=== PATIENT | female | born 1955 | race African-American/Black ===

== ENCOUNTER 2018-05-21 02:23 | Inpatient (IN) | payer OTHER ==
[~2018-05-21] VITALS: Ht 157.5 cm; Wt 106.8 kg
[~2018-05-21 02:23] MED LIST: AMLODIPINE10 MG PO; ASPIRIN81 M1 PO; ASPIRIN81 M4 PO; BISAC-EVAC10 M1 PR; CALCIUM CARBON500 M2 PO; DOCUSATE SODIU100 M3 PO; HYDRODIURIL 2525 MG PO; HYDROMORPHONE HC2 M1 PO; MILK OF MA400 MG/52 PO; ONE DAILY MULT1 EAC2 PO; PERCOCET 325 MG1 TA2 PO; TYLENOL325 M1 PO; VITAMIN D31000 UNI2 PO; [UNRECOGNIZED DRUG - SUPPLY]
--- NOTE | 2018-05-21 13:07 | Operative Report ---
Operative/Inv Procedure Report Surgery Date: 05/21/18 Name of Procedure: Lumbosacral inspection of fusion mass. Removal of segmental hardware L3-4 laminectomies L3 36967. Instrumented fusion L3 through S1. Lateral fusion L3 S1 with local bone. Using fluoroscopy. Pre-Operative Diagnosis: Severe degenerative facet arthropathy and spinal stenosis status post lumbar fusion L3 through S1. Post-Operative Diagnosis: Same Estimated Blood Loss: 150cc Surgeon/Meat Cutter: Fredrick MENA,German VARELA Anesthesia: general endotracheal tube Operative/Procedure Note Note: After adequate general anesthesia was achieved the patient was placed in the prone position. The back was sterilely prepped and draped the previous incision was extended distally. The dissection was carried over the dorsal elements and the deep retractors were placed. The area of previous fusion was easily identified the fusion was inspected the hardware was intact and there is no evidence of motion at 3 4. The hardware was easily removed. Laminectomies were created at 3445 and 5 1. There was significant instability below the fusion at L4-5. There is severe facet arthropathy at L4-5 and L5-S1. Laminectomies were performed at L3 445 and 5 1 with debridement of foramen at all 3 levels and removal of severely thickened ligamentum flavum and bony osteophytes at L4-5. Brachial arteries were created in L5 and S1 the pedicles were tapped checked with a ball-tipped probe and screws were placed 2 screws were placed in L3 one screw was placed in L4 on the right side 2 screws in L5 and 2 screws in S1. There is excellent purchase of all 7 screws. Due to the decompression there was loss of optimal bone purchase in the left L4 and the screw was not used since the 3 4 fusion was solid. Rods were contoured facets were decorticated with a pencil point yousuf compression was applied and the screws were locked. The construct was evaluated in AP and lateral plane and found to be appropriately positioned. Spinous processes were harvested lateral intertransverse process region was decorticated with a high-speed bur from L3 through S1 and bone graft was packed laterally as well as underneath the rods over the decorticated facet joints at L4-5 and L5-S1. Wound is copiously irrigated Gelfoam was laid over the laminotomy sites and a closure of the lumbodorsal fascia and subcutaneous tissue was performed with a double suture. The skin was closed with jade. After placement of sterile dressings the patient was logrolled onto the stretcher.
--- NOTE | 2018-05-21 13:14 | Patient Discharge Instructions ---
Acute Coronary Syndrome Inclusion Criteria At DC or during hospital stay patient has or had the following: ACS DIAGNOSIS No Discharge Core Measures Meds if any: Prescribed or Continued at Discharge Meds if any: NOT Prescribed or Continued at Discharge Congestive Heart Failure Inclusion Criteria At DC or during hospital stay patient has or had the following: CHF DIAGNOSIS No Discharge Core Measures Meds if any: Prescribed or Continued at Discharge Meds if any: NOT Prescribed or Continued at Discharge Cerebrovascular accident Inclusion Criteria At DC or during hospital stay patient has or had the following: CVA/TIA Diagnosis No Discharge Core Measures Meds if any: Prescribed or Continued at Discharge Meds if any: NOT Prescribed or Continued at Discharge Venous thromboembolism Inclusion Criteria VTE Diagnosis No VTE Type NONE VTE Confirmed by (Test) NONE Discharge Core Measures - Per Current guidelines, there needs to be overlap - treatment for the first 5 days of Warfarin therapy. - If discharged on Warfarin prior to 5 days of - overlap therapy, the patient will need to be - assessed for post discharge needs including - *Post discharge parental anticoagulation - *Warfarin and/or parental anticoagulation education - *Follow up date to check INR post discharge At least 5 days overlap therapy as Inpatient No Meds if any: Prescribed or Continued at Discharge Note: Overlap Therapy is Warfarin and Anticoagulant Meds if any: NOT Prescribed or Continued at Discharge
[2018-05-21] MEDS ORDERED: MILK OF MA400 MG/52 PO (13:18)
[2018-05-21] MEDS ORDERED: MULTIVITAMINS1 EAC9 PO (13:18)
[2018-05-21] MEDS ORDERED: OS-CAL 500+D31 EAC1 PO (13:18)
[2018-05-21] MEDS ORDERED: VITAMIN D31000 UNI2 PO (13:18)
[2018-05-21] MEDS ORDERED: COLACE100 M1 PO (13:18)
[2018-05-21] MEDS ORDERED: TYLENOL EXTRA500 M2 PO (13:18)
[2018-05-21] MEDS ORDERED: DULCOLAX10 M1 RC (13:18)
[2018-05-21] MEDS ORDERED: PERCOCET 5-3251 EACH PO (13:18)
[2018-05-21 13:26] LABS: ABSOLUTE BASOPHIL COUNT 0 /CUMM (0.0-0.2); ABSOLUTE EOSINOPHIL COUNT 0 /CUMM (0.0-0.7); ABSOLUTE GRANULOCYTE CT 8.5 /CUMM (1.4-6.5); ABSOLUTE LYMPH COUNT 1.9 /CUMM (1.2-3.4); ABSOLUTE MONOCYTE COUNT 0.2 /CUMM (0.10-0.60); BASOPHIL % 0 % (0.0-2.0); EOSINOPHIL % 0.1 % (0-5); GRANULOCYTE % 80.6 % (42.2-75.2); HEMATOCRIT 39.2 % (37-47); MEAN CORPUSCULAR HGB 29.8 PG (27.0-31.0); MEAN CORPUSCULAR HGB CONC 34.1 G/DL (33.0-37.0); MEAN CORPUSCULAR VOLUME 87.3 FL (81.0-99.0); MEAN PLATELET VOLUME 8.9 FL (7.4-10.4); RBC DISTRIBUTION WIDTH 14.3 % (11.5-14.5); RED BLOOD CELL CT 4.49 /CUMM (4.20-5.40); WHITE BLOOD CELL COUNT 10.6 /CUMM (4.8-10.8)
--- NOTE | 2018-05-21 13:29 | RADIOLOGY REPORT ---
EXAMINATION: FL LUMBAR SPINE IN OPERATING ROOM CLINICAL INFORMATION: L2 through L5 fusion in OR. COMPARISON: Lumbosacral spine 06/20/2016. TECHNIQUE: Fluoroscopy was provided in the operating room. Intraoperative spot views were obtained of the lumbar spine in AP and lateral projections. NUMBER OF FLUOROSCOPIC IMAGES: 2 images. FLUOROSCOPY TIME: 0.1 minutes. DOSE: 0.971 mGy; 0.0315 mGym2. FINDINGS AND IMPRESSION: Spot films demonstrate posterior spinal fusion from L3 to S1 with bipedicular screws at L3, L5, and S1. There is a unipedicular screw at L4. There is a posterior connecting jorge on 1 side.
[2018-05-21 13:45] LABS: PLATELET COUNT 194 /CUMM (130-400)
[2018-05-21 15:15] VITALS: BP 128/76
--- NOTE | 2018-05-21 15:41 | PN- Neurosurgical ---
Subjective Subjective: Postop check: Patient in moderate to severe pain in the low back. No weakness or numbness in the extremities. No nausea no vomiting. She is recovering well from anesthesia Objective Vital Signs and I&Os Vital Signs Date Time Temp Pulse Resp B/P B/P Pulse O2 O2 Flow FiO2 Mean Ox Delivery Rate 05/21 1515 94 Nasal 2.0L Cannula 05/21 151 97.6 84 18 128/76 94 Room Air Intake & Output 05/21 1600 05/21 0800 05/21 0000 05/20 0805/20 0000 Intake Total Output Total Balance Patient 235 lb 280 lb Weight Weight Bed scale Measurement Method Physical Exam: Well-developed well-nourished. Appears uncomfortable HEENT: Atraumatic, extraocular motion intact Neck: Supple, no lymphadenopathy, trachea midline Respiratory: No respiratory distress Abdomen: Obese Back: Dressing clean dry and intact, no swelling. Limited range of motion Extremities: No edema, no calf pain Neuro: Alert and oriented x3 bilateral lower extremity's are neurovascular intact with sensation and motor grossly intact. Psych: Mood affect normal, normal memory normal judgment. Skin: Warm and dry, no rash on exposed skin Results Last 48 Hours of Labs: Laboratory Tests 05/21 1315 Hematology CBC w Diff NO MAN DIFF REQ WBC (4.8 - 10.8 /CUMM) 10.6 RBC (4.20 - 5.40 /CUMM) 4.49 Hgb (12.0 - 16.0 G/DL) 13.4 Hct (37 - 47 %) 39.2 MCV (81.0 - 99.0 FL) 87.3 MCH (27.0 - 31.0 PG) 29.8 MCHC (33.0 - 37.0 G/DL) 34.1 RDW (11.5 - 14.5 %) 14.3 Plt Count (130 - 400 /CUMM) 194 MPV (7.4 - 10.4 FL) 8.9 Gran % (42.2 - 75.2 %) 80.6 H Lymphocytes % (20.5 - 51.1 %) 17.8 L Monocytes % (1.7 - 9.3 %) 1.5 L Eosinophils % (0 - 5 %) 0.1 Basophils % (0.0 - 2.0 %) 0 Absolute Granulocytes (1.4 - 6.5 /CUMM) 8.5 H Absolute Lymphocytes (1.2 - 3.4 /CUMM) 1.9 Absolute Monocytes (0.10 - 0.60 /CUMM) 0.2 Absolute Eosinophils (0.0 - 0.7 /CUMM) 0 Absolute Basophils (0.0 - 0.2 /CUMM) 0 Assessment/Plan Assessment/Plan Postop day #0 status post removal of hardware L2-3 previous fusion site, lumbar laminectomy and fusion with local bone graft L3-S1 Perioperative antibiotics. Pain medication as needed. Out of bed Physical therapy, weightbearing as tolerated IV fluids Regular diet Follow a.m. labs ALPS for DVT prophylaxis Regular home meds Patient with allergy to codeine, possible Percocet, allergy is itching however patient is unsure. Will try Percocet postoperatively for pain and monitor for itching/allergic reaction Dressing change postop day 2 Core Measures Venous Thromboembolism VTE Risk Factors Age>40 No Mechanical VTE Prophylaxis d/t N/A MechProphylax Ordered No VTE Pharm Prophylaxis d/t Other (surgeon preference)
[2018-05-21 17:02] VITALS: BP 138/76
[2018-05-21 18:42] VITALS: BP 136/82
[2018-05-21 21:22] VITALS: BP 131/73
[2018-05-22 00:32] VITALS: BP 119/70
[2018-05-22 04:00] VITALS: BP 130/64
--- NOTE | 2018-05-22 07:08 | PN- Neurosurgical ---
Subjective Subjective: Patient with complaints of moderate to severe pain in the right buttock that radiates down the left leg, difficulty sleeping Objective Vital Signs and I&Os Vital Signs Date Time Temp Pulse Resp B/P B/P Pulse O2 O2 Flow FiO2 Mean Ox Delivery Rate 05/22 0400 99.4 90 18 130/64 98 Nasal 2.0L Cannula 05/22 0032 98.4 76 18 119/70 100 Nasal 2.0L Cannula 05/22 0000 Nasal 2.0L Cannula 05/21 2344 Room Air 05/21 2122 98.3 87 20 131/73 92 Room Air 05/21 1842 98.0 68 16 136/82 98 Nasal 2.0L Cannula 05/21 1702 97.5 67 16 138/76 94 Nasal Cannula 05/21 1515 94 Nasal 2.0L Cannula 05/21 1515 97.6 84 18 128/76 94 Room Air Intake & Output 05/22 0800 05/22 0000 05/21 1600 05/21 0800 05/21 0000 05/20 1600 Intake Total 890 940 Output Total 850 450 Balance 40 490 Intake, IV 650 220 Intake, Oral 240 720 Number 0 0 Bowel Movements Output, Urine 850 450 Patient 235 lb 280 lb Weight Weight Bed scale Measurement Method Physical Exam: Well-developed well-nourished no apparent distress. HEENT: Atraumatic, extraocular motion intact Neck: Supple, no lymphadenopathy Respiratory: No respiratory distress Back: Dressing clean dry and intact, no swelling, no drainage. Extremities: No edema, no calf pain Neuro: Alert and oriented x3 bilateral lower extremities with sensation and motor grossly intact Psych: Mood affect normal, normal memory normal judgment. Skin: Warm and dry, no rash on exposed skin Assessment/Plan Assessment/Plan Postop day #1 status post removal of hardware L2-3 previous fusion site, lumbar laminectomy and fusion with local bone graft L3-S1 Perioperative antibiotics. Pain is not adequately controlled, last received 2 mg of morphine IV, will increase to 4 mg every 4 hours, consider gabapentin, consider Toradol, consider Decadron for left buttock and left leg radiculopathy pain, will discuss with Dr. Alcala Out of bed Physical therapy, weightbearing as tolerated DC IV fluids Regular diet Follow a.m. labs ALPS for DVT prophylaxis Regular home meds Dressing change postop day 2 Core Measures Venous Thromboembolism VTE Risk Factors Age>40 No Mechanical VTE Prophylaxis d/t N/A MechProphylax Ordered No VTE Pharm Prophylaxis d/t Other (surgeon preference)
[2018-05-22 08:19] VITALS: BP 140/82
[2018-05-22 08:36] LABS: ABSOLUTE BASOPHIL COUNT 0 /CUMM (0.0-0.2); ABSOLUTE EOSINOPHIL COUNT 0.1 /CUMM (0.0-0.7); ABSOLUTE MONOCYTE COUNT 0.5 /CUMM (0.10-0.60); BASOPHIL % 0.3 % (0.0-2.0); EOSINOPHIL % 0.7 % (0-5); GRANULOCYTE % 78.9 % (42.2-75.2); MEAN CORPUSCULAR HGB 29.8 PG (27.0-31.0); MEAN CORPUSCULAR HGB CONC 33.3 G/DL (33.0-37.0); MEAN CORPUSCULAR VOLUME 89.3 FL (81.0-99.0); MEAN PLATELET VOLUME 9.1 FL (7.4-10.4); PLATELET COUNT 233 /CUMM (130-400); RBC DISTRIBUTION WIDTH 14.8 % (11.5-14.5); RED BLOOD CELL CT 4.03 /CUMM (4.20-5.40); WHITE BLOOD CELL COUNT 12.7 /CUMM (4.8-10.8)
[2018-05-22] MEDS ORDERED: HYDROMORPHONE HC2 M1 PO (11:56)
[2018-05-22 12:24] VITALS: BP 120/70
--- NOTE | 2018-05-22 13:25 | PN- Orthopedic ---
Subjective Subjective: Patient c/o postop incisional and left buttock and left lateral thigh pain, worse with ambulation and sitting. Ice helps. Tania. po Dilaudid and IV Morphine. Ambulated to BR with min. assist. + appetite. No N/V,chills, CP, SOB. Voiding without difficulty. IV Tylenol just given. Review of Systems: Remarkable for the above complaints. Objective Vital Signs and I&Os Vital Signs Date Time Temp Pulse Resp B/P B/P Pulse O2 O2 Flow FiO2 Mean Ox Delivery Rate 05/22 1224 100.0 105 20 120/70 95 Nasal 2.0L Cannula 05/22 0907 130/64 05/22 0819 99.0 95 20 140/82 98 Nasal 2.0L Cannula 05/22 0800 98 Nasal 2.0L Cannula 05/22 0400 99.4 90 18 130/64 98 Nasal 2.0L Cannula 05/22 0032 98.4 76 18 119/70 100 Nasal 2.0L Cannula 05/22 0000 Nasal 2.0L Cannula 05/21 2344 Room Air 05/21 2122 98.3 87 20 131/73 92 Room Air 05/21 1842 98.0 68 16 136/82 98 Nasal 2.0L Cannula 05/21 1702 97.5 67 16 138/76 94 Nasal Cannula 05/21 1515 94 Nasal 2.0L Cannula 05/21 1515 97.6 84 18 128/76 94 Room Air Intake & Output 05/22 1600 05/22 0800 05/22 0000 05/21 1600 05/21 0800 05/21 0000 Intake Total 890 940 Output Total 850 450 Balance 40 490 Intake, IV 650 220 Intake, Oral 240 720 Number 0 0 Bowel Movements Output, Urine 850 450 Patient 235 lb Weight Weight Bed scale Measurement Method Physical Exam General Appearance: well developed/nourished, alert, awake, mild distress Respiratory: normal breath sounds, no respiratory distress Cardiovascular: regular rate/rhythm Abdomen: normal bowel sounds, soft, non-tender Back: Incision C/D/I. Dressings changed. Neurologic/Psychiatric: Neurovacularly stable and intact with no new or worsening gross motor or sensory loss in yessica. lower extremities. Skin: intact, normal color, warm/dry Current Medications: Current Medications Sig/Bayron Start time Last Medication Dose Route Stop Time Status Admin Acetaminophen 1,000 MG Q6H 05/22 1215 AC 05/22 N/A 1 UNIT IV 05/23 0629 1238 Acetaminophen 0 .STK-MED ONE 05/21 1422 DC IV Acetaminophen 650 MG Q4P PRN 05/21 1315 AC PO Amlodipine Besylate 10 MG DAILY 05/22 0900 AC 05/22 PO 0907 Aspirin 81 MG DAILY 05/22 0900 AC 05/22 PO 0906 Bisacodyl 10 MG DAILY NEEDED PRN 05/21 1315 AC NV Calcium 600 MG BID 05/21 2100 AC 05/22 PO 0906 Cefazolin Sodium 1,000 MG IQ8 05/21 1600 DC 05/22 IV 05/22 0801 0733 Cefazolin Sodium 2,000 MG ONCE 05/21 0000 DC IV 05/21 2359 Cholecalciferol 1,000 IU DAILY 05/22 09 AC 05/22 PO 0907 Docusate Sodium 100 MG TID 05/21 1400 AC 05/22 PO 0906 Hydrochlorothiazide 25 MG DAILY 05/22 0900 AC 05/22 PO 0906 Hydromorphone HCl 2 MG Q3P PRN 05/21 1800 AC PO Hydromorphone HCl 4 MG Q3P PRN 05/21 1800 AC 05/22 PO 0905 Hydromorphone HCl 0 .STK-MED ONE 05/21 1423 DC .ROUTE Lactated Ringer's 1,000 ML Q10H 05/21 1315 DC 05/22 IV 0033 Magnesium Hydroxide 30 ML Q8P PRN 05/21 1315 AC PO Morphine Sulfate 2 MG ONCE ONE 05/22 0715 DC 05/22 IV 05/22 0716 0733 Morphine Sulfate 4 MG Q4P PRN 05/22 0715 AC IV Morphine Sulfate 2 MG Q4P PRN 05/21 1315 DC 05/22 IV 0642 Multivitamins 1 TAB DAILY 05/22 09 AC 05/22 PO 0907 Ondansetron HCl 4 MG Q6P PRN 05/21 1315 AC IV Oxycodone/ 1 TAB Q4P PRN 05/21 1315 DC Acetaminophen PO Oxycodone/ 2 TAB Q4P PRN 05/21 1315 DC Acetaminophen PO Senna/Docusate Sodium 2 TAB AT BEDTIME NEED.. 05/21 1315 AC PO Trimethobenzamide HCl 200 MG Q6P PRN 05/21 1315 AC IM Results Last 48 Hours of Labs: Laboratory Tests 05/22 05/21 0610 1315 Hematology CBC w Diff NO MAN DIFF REQ NO MAN DIFF REQ WBC (4.8 - 10.8 /CUMM) 12.7 H 10.6 RBC (4.20 - 5.40 /CUMM) 4.03 L 4.49 Hgb (12.0 - 16.0 G/DL) 12.0 13.4 Hct (37 - 47 %) 36.0 L 39.2 MCV (81.0 - 99.0 FL) 89.3 87.3 MCH (27.0 - 31.0 PG) 29.8 29.8 MCHC (33.0 - 37.0 G/DL) 33.3 34.1 RDW (11.5 - 14.5 %) 14.8 H 14.3 Plt Count (130 - 400 /CUMM) 233 194 MPV (7.4 - 10.4 FL) 9.1 8.9 Gran % (42.2 - 75.2 %) 78.9 H 80.6 H Lymphocytes % (20.5 - 51.1 %) 15.8 L 17.8 L Monocytes % (1.7 - 9.3 %) 4.3 1.5 L Eosinophils % (0 - 5 %) 0.7 0.1 Basophils % (0.0 - 2.0 %) 0.3 0 Absolute Granulocytes (1.4 - 6.5 /CUMM) 10.0 H 8.5 H Absolute Lymphocytes (1.2 - 3.4 /CUMM) 2.0 1.9 Absolute Monocytes (0.10 - 0.60 /CUMM) 0.5 0.2 Absolute Eosinophils (0.0 - 0.7 /CUMM) 0.1 0 Absolute Basophils (0.0 - 0.2 /CUMM) 0 0 Assessment/Plan Assessment/Plan Assessment: s/p Rev. PLDF L3-S1 with Instr./Local autograft bone Plan: Continue IV Morphine, IV Tylenol, and po Dilaudid Ambulate with PT Check labs Ice prn pain Will Follow up in am Bowel regimen If cleared by PT, possible D/C to hotel tomorrow. Problem List: 1. Hypertension 2. Obstructive sleep apnea 3. Osteoporosis Core Measures Venous Thromboembolism VTE Risk Factors Age>40 No Mechanical VTE Prophylaxis d/t Early Ambulation No VTE Pharm Prophylaxis d/t Other (surgeon preference) Attending MD Review Statement Attending Statement Attending MD Statement: examined this patient, discuss w/resident/PA/SAFETY CLOTHING AND EQUIPMENT DEVELOPER, agreed w/resident/PA/SAFETY CLOTHING AND EQUIPMENT DEVELOPER
[2018-05-22 14:50] VITALS: BP 110/62
[2018-05-22 21:24] VITALS: BP 112/74
[2018-05-23 07:48] VITALS: BP 125/68
[2018-05-23 10:55] VITALS: BP 128/78
[2018-05-23 12:00] VITALS: BP 130/80
--- NOTE | 2018-05-23 15:38 | PN- Orthopedic ---
Subjective Subjective: Patient c/o expected postop incisional pain. Leg pain ceased. No numbness/ tingling. Tania po Dilaudid. +flatus. + voiding. Ambulating with min. assist. Review of Systems: Remarkable for the above complaints. Objective Vital Signs and I&Os Vital Signs Date Time Temp Pulse Resp B/P B/P Pulse O2 O2 Flow FiO2 Mean Ox Delivery Rate 05/23 1200 98.9 90 18 130/80 95 Room Air 05/23 1055 88 128/78 95 Room Air 05/23 0800 Room Air 05/23 0748 98.6 94 18 125/68 98 05/23 0000 97 Nasal 2.0L Cannula 05/22 2124 98.5 99 18 112/74 95 Nasal Cannula Intake & Output 05/23 1600 05/23 0800 05/23 0000 05/22 1600 05/22 0800 05/22 0000 Intake Total 920 200 120 540 890 940 Output Total 900 1500 1450 600 850 450 Balance 20 -1300 -1330 -60 40 490 Intake, IV 20 300 650 220 Intake, Oral 900 200 120 240 240 720 Number 0 0 Bowel Movements Output, Urine 900 1500 1450 600 850 450 Physical Exam General Appearance: well developed/nourished, no apparent distress, alert, comfortable Respiratory: normal breath sounds, no respiratory distress Cardiovascular: regular rate/rhythm Abdomen: normal bowel sounds, soft, non-tender Back: Incision C/D/I. Dressing changed. Neurologic/Psychiatric: Neurovascularly intact and stable with no new or worsening gross motor or sensory loss in yessica. LE. Skin: intact, normal color, warm/dry Current Medications: Current Medications Sig/Bayron Start time Last Medication Dose Route Stop Time Status Admin Acetaminophen 1,000 MG Q6H 05/22 1215 DC 05/23 N/A 1 UNIT IV 05/23 629 0613 Acetaminophen 650 MG Q4P PRN 05/21 1315 AC PO Amlodipine Besylate 10 MG DAILY 05/22 900 AC 05/23 PO 1047 Aspirin 81 MG DAILY 05/22 900 AC 05/23 PO 1046 Bisacodyl 10 MG DAILY NEEDED PRN 05/21 1315 AC KS Calcium 600 MG BID 05/21 2100 AC 05/23 PO 1046 Cholecalciferol 1,000 IU DAILY 05/22 09 AC 05/23 PO 1047 Docusate Sodium 100 MG TID 05/21 1400 AC 05/23 PO 1337 Hydrochlorothiazide 25 MG DAILY 05/22 0900 AC 05/23 PO 1047 Hydromorphone HCl 2 MG Q3P PRN 05/21 1800 AC 05/22 PO 1634 Hydromorphone HCl 4 MG Q3P PRN 05/21 1800 AC 05/23 PO 1053 Magnesium Hydroxide 30 ML Q8P PRN 05/21 1315 AC 05/23 PO 1053 Morphine Sulfate 4 MG Q4P PRN 05/22 0715 AC 05/23 IV 0331 Multivitamins 1 TAB DAILY 05/22 09 AC 05/23 PO 1047 Ondansetron HCl 4 MG Q6P PRN 05/21 1315 AC IV Patient Medication 1 ED ONE ONE 05/22 1945 DC 05/23 Teaching ED 05/22 1946 0646 Senna/Docusate Sodium 2 TAB AT BEDTIME NEED.. 05/21 1315 AC PO Trimethobenzamide HCl 200 MG Q6P PRN 05/21 1315 AC IM Results Last 48 Hours of Labs: Laboratory Tests 05/22 06 Hematology CBC w Diff NO MAN DIFF REQ WBC (4.8 - 10.8 /CUMM) 12.7 H RBC (4.20 - 5.40 /CUMM) 4.03 L Hgb (12.0 - 16.0 G/DL) 12.0 Hct (37 - 47 %) 36.0 L MCV (81.0 - 99.0 FL) 89.3 MCH (27.0 - 31.0 PG) 29.8 MCHC (33.0 - 37.0 G/DL) 33.3 RDW (11.5 - 14.5 %) 14.8 H Plt Count (130 - 400 /CUMM) 233 MPV (7.4 - 10.4 FL) 9.1 Gran % (42.2 - 75.2 %) 78.9 H Lymphocytes % (20.5 - 51.1 %) 15.8 L Monocytes % (1.7 - 9.3 %) 4.3 Eosinophils % (0 - 5 %) 0.7 Basophils % (0.0 - 2.0 %) 0.3 Absolute Granulocytes (1.4 - 6.5 /CUMM) 10.0 H Absolute Lymphocytes (1.2 - 3.4 /CUMM) 2.0 Absolute Monocytes (0.10 - 0.60 /CUMM) 0.5 Absolute Eosinophils (0.0 - 0.7 /CUMM) 0.1 Absolute Basophils (0.0 - 0.2 /CUMM) 0 Assessment/Plan Assessment/Plan Assessment: S/p Re. PLDF L3-S1 with Instr/Local bone Plan: D/C to hotel. Continue po Dilaudid and Tylenol. Do's and Don'ts explained and Disch. Instr. given. Will follow up as outpatient. Problem List: 1. Hypertension 2. Obstructive sleep apnea 3. Osteoporosis Core Measures Venous Thromboembolism VTE Risk Factors Age>40 No Mechanical VTE Prophylaxis d/t Early Ambulation No VTE Pharm Prophylaxis d/t Other (surgeon preference) Attending MD Review Statement Attending Statement Attending MD Statement: discuss w/resident/PA/BIOFUELS MANAGER, agreed w/resident/PA/BIOFUELS MANAGER
--- NOTE | 2018-05-23 15:51 | Surg Short-stay <48hrs Dis Sum ---
Visit Information Visit Dates Admission Date: 05/21/18 Discharge Date: 05/23/18 Surgical Short Stay DC Summary Admission Diagnosis: Severe degenerative facet arthropathy and spinal stenosis status post lumbar fusion L3 through S1 Final Diagnosis: Severe degenerative facet arthropathy and spinal stenosis status post lumbar fusion L3 through S1 Procedure(s): Surgery Date: 05/21/18 Name of Procedure: Lumbosacral inspection of fusion mass. Removal of segmental hardware L3-4 laminectomies L3 06677. Instrumented fusion L3 through S1. Lateral fusion L3 S1 with local bone. Using fluoroscopy Summary/Significant Findings: Electively scheduled lumbosacral inspection of fusion mass, removal of segmental hardware L3-4 laminectomies L3-4, L4-5, L5-S1, instrumented fusion L3 through S1, lateral fusion L3 S1 with local bone on 05/21/18 by , for history of severe degenerative facet arthropathy and spinal stenosis status post lumbar fusion L3 through S1. Pain control transitioned from iv to oral medication as able. Evaluated and treated by PT, and cleared for discharge back to the [facility] on 05/23/18. Do's and Don'ts were reviewed by Soumya Rodriguez PA-C. Condition at Discharge: stable Discharge Disposition: home or self care Discharge instructions provided to patient/family: Yes Post discharge follow-up plan: follow up with as directed
== END 2018-05-23 18:35 | DRG 460 ==
LOC: SDA 02:23 → ENRESERV 13:08 → ENTRNSPT 14:44 → CMPTRNSPT 14:48 → 2NB 14:59
PROVIDERS: Orthopaedic Surgery Orthopaedic Surgery of the Spine
PROC: 0QB00ZZ Excision of Lumbar Vertebra, Open Approach (ICD-10-PCS; principal; 2018-05-21)
PROC: 0SG3071 Fusion of Lumbosacral Joint with Autologous Tissue Substitute, Posterior Approach, Posterior Column, Open Approach (ICD-10-PCS; principal; 2018-05-21)
PROC: 07DS3ZZ Extraction of Vertebral Bone Marrow, Percutaneous Approach (ICD-10-PCS; principal; 2018-05-21)
PROC: 0MBD0ZZ Excision of Lower Spine Bursa and Ligament, Open Approach (ICD-10-PCS; principal; 2018-05-21)
PROC: 30233N0 Transfusion of Autologous Red Blood Cells into Peripheral Vein, Percutaneous Approach (ICD-10-PCS; principal; 2018-05-21)
PROC: 0SG1071 Fusion of 2 or more Lumbar Vertebral Joints with Autologous Tissue Substitute, Posterior Approach, Posterior Column, Open Approach (ICD-10-PCS; principal; 2018-05-21)
PROC: 0SP00AZ Removal of Interbody Fusion Device from Lumbar Vertebral Joint, Open Approach (ICD-10-PCS; principal; 2018-05-21)
DX: M96.0 Pseudarthrosis after fusion or arthrodesis (principal); M48.061 Spinal stenosis, lumbar region without neurogenic claudication; G47.33 Obstructive sleep apnea (adult) (pediatric); I10 Essential (primary) hypertension; K21.9 Gastro-esophageal reflux disease without esophagitis; Z88.5 Allergy status to narcotic agent
CPT/HCPCS: 2NBP; 36415; 76000; 87086; 97110-GO; 97116-GO; 97161-GP; C1713; J0131; J0690; J1644; J2405; J3250; J3490; J7120